=== PATIENT | male | born 1950 | race Caucasian/White ===

== ENCOUNTER 2020-06-06 07:25 | Outpatient (CLI) | payer MEDICARE, BC | END 2020-06-06 07:26 | disposition home or self-care (01) | LOC: CSHCT 07:25 | PROVIDERS: ATTEND Family Medicine | DX: S22.089A Unspecified fracture of T11-T12 vertebra, initial encounter for closed fracture (principal); S22.080A Wedge compression fracture of T11-T12 vertebra, initial encounter for closed fracture | CPT/HCPCS: 72128 ==

== ENCOUNTER 2021-01-02 06:53 | Emergency (ER) | payer MEDICARE, BC | END 2021-01-02 09:15 | disposition home or self-care (01) | LOC: CSHERS 06:53 | DX: S76.112A Strain of left quadriceps muscle, fascia and tendon, initial encounter (principal); W22.8XXA Striking against or struck by other objects, initial encounter; M79.605 Pain in left leg ==